=== PATIENT | male | born 1945 | race Caucasian/White ===

== ENCOUNTER 2016-12-30 14:23 | Inpatient (IN) | payer MEDICARE, BC ==
[~2016-12-30] VITALS: Ht 185.4 cm; Wt 90.7 kg
[2017-01-02] MEDS ORDERED: DULC5TAB PO (10:29)
[2017-01-02] MEDS ORDERED: GAS-80CH CHEW (10:29)
[2017-01-02] MEDS ORDERED: SIMV20TA PO (10:29)
[2017-01-02] MEDS ORDERED: CENTTAB PO (10:29)
[2017-01-02] MEDS ORDERED: ASPI1TAB69 PO (10:29)
[2017-01-02] MEDS ORDERED: TRAM50TA PO (10:29)
[2017-01-09] MEDS ORDERED: ePHEDrine/NS 25 MG/5 ML SYR IV ONE (12:00)
[2017-01-09] MEDS ORDERED: PHENYLEPH/NS 1000 MCG/10 ML SYR IV ONE (12:00)
[2017-01-09] MEDS ORDERED: PHENYLEPHRINE HCL 10 MG/ML VIAL IV ONE (12:00)
[2017-01-09] MEDS ORDERED: LACTATED RINGER'S 1000 ML INJ 1,000 ML IV ONE (12:00)
[2017-01-09] MEDS ORDERED: NEOSTIGMINE 3 MG/3 ML SYR IV ONE (12:00)
[2017-01-09] MEDS ORDERED: ONDANSETRON HCL 4 MG/2 ML VIAL IV PUSH ONE (12:00)
[2017-01-09] MEDS ORDERED: PROPOFOL 200 MG/20 ML AMP IV ONE (12:00)
[2017-01-09] MEDS ORDERED: NORMOSOL R INJ 3,000 ML IV ONE (12:00)
[2017-01-09] MEDS ORDERED: MIRA33504 PO (12:13)
[2017-01-09 12:14] VITALS: BP 116/81; PULSE 70; RESP 16; TEMP 97.1; O2SAT 96
[2017-01-09] MEDS ORDERED: METRONIDAZOLE 500 MG/100 ML ISONTONIC SOLN IV SCH (12:15)
[2017-01-09] MEDS ORDERED: ceFAZolin 1,000 MG/NS 100 ML IV SCH ×2 (12:15)
[2017-01-09] MEDS ORDERED: DEXT 5%-NACL 0.9% 1000 ML INJ 1,000 ML IV SCH (12:15)
[2017-01-09] MEDS ORDERED: ALVIMOPAN 12 MG CAPSULE ONE (12:24)
[2017-01-09] MEDS ORDERED: CHLORHEXIDINE GLUCONATE 2 % 1 PACK (2 CLOTHS) TOPICAL PRN (12:30)
[2017-01-09] MEDS ORDERED: METOPROLOL TARTRATE 25 MG TAB PO PRN (12:30)
[2017-01-09] MEDS ORDERED: POVIDONE IODINE 5% (ANTISEPSIS KIT) 4 APPLICATIONS EACH NARE PRN (12:30)
[2017-01-09] MEDS ORDERED: SODIUM CHLORID 0.9% 500 ML IV PRN (12:30)
[2017-01-09] MEDS ORDERED: INSULIN HUMAN REGULAR 1,000 UNITS/10 ML VIAL SQ PRN (12:30)
[2017-01-09] MEDS ORDERED: LACTATED RINGER'S 1000 ML IV PRN (12:30)
[2017-01-09] MEDS ORDERED: GLUCAGON 1 MG/ML VIAL ONE (12:56)
[2017-01-09] MEDS ORDERED: HEPARIN SODIUM - SQ 10,000 UNITS/ML VIAL ONE (12:56)
[2017-01-09] MEDS ORDERED: THROMBIN (TOPICAL) 5,000 UNIT VIAL ONE (12:56)
[2017-01-09] MEDS ORDERED: BUPIVACAINE HCL PF 0.5% 30 ML VIAL ONE (12:56)
[2017-01-09] MEDS ORDERED: GELFOAM SIZE 100 ONE (12:57)
--- NOTE | 2017-01-09 13:26 | PD.HP.UP ---
H&P Update Note The Pre-Admit History and Physical Examination regarding the above named patient was reviewed (including, but not limited to, vital signs, heart, lungs, co-morbid conditions), and upon re-examination it is noted that: the patient's condition has not significantly changed since the last examination. Danielito Ramírez MD Jan 09, 2017 13:26
[2017-01-09 17:27] LABS: BLOOD GAS BASE EXCESS -4.1 mmol/L (-2-2); BLOOD GAS CARBOXYHEMOGLOBIN 1.4 % (0-4); BLOOD GAS HCO3 20 mmol/L (22-26); BLOOD GAS METHEMOGLOBIN 1.5 % (0-2); BLOOD GAS O2 HGB SATURATION 96 % (90-100); BLOOD GAS OXYGEN CONTENT 17.3 Vol % (12.0-20.0); BLOOD GAS PCO2 35 mmHg (38-42); BLOOD GAS PO2 201 mmHg (61-120); BLOOD GAS TOTAL HGB 12.4 G/DL (12.0-16.0); CRITICAL VALUE NO; FIO2 50 %; NUMBER OF ARTERIAL PUNCTURES 1; STAT YES; TEMP CORR TO 98.6; ULNAR PULSE PRESENT
[2017-01-09] MEDS ORDERED: diphenhydrAMINE HCL 50 MG/ML VIAL IV PRN (18:45)
[2017-01-09] MEDS ORDERED: oxyCODONE/ACETAMINOPHEN 5 MG/325 MG TAB PO PRN (18:45)
[2017-01-09] MEDS ORDERED: Post-op Orders (for Pharmacy) MISC XX ONE (18:45)
[2017-01-09] MEDS ORDERED: SODIUM CHLORIDE 0.9% FLUSH 10 ML FLUSH IV FLUSH PRN (18:45)
[2017-01-09] MEDS ORDERED: NALOXONE HCL 0.4 MG/ML AMP IV PRN ×2 (18:45)
[2017-01-09] MEDS ORDERED: HYDROmorphone HCL PF 1 MG/ML VIAL IV PRN ×3 (18:45)
[2017-01-09] MEDS ORDERED: MIDAZOLAM HCL 2 MG/2 ML VIAL ONE (19:05)
[2017-01-09] MEDS ORDERED: *morphine SULFATE 8 MG/ML PERIprocedure ONLY ONE ×3 (19:06→19:57)
[2017-01-09] MEDS ORDERED: fentaNYL CITRATE 250 MCG/5 ML AMP ONE (19:06)
[2017-01-09] MEDS ORDERED: *MEPERIDINE 25 MG INJ VIAL PERIprocedural Use ONLY ONE (19:14)
[2017-01-09] MEDS ORDERED: MORPHINE SULFATE 30 MG/30 ML PCA ONE (19:50)
[2017-01-09] MEDS: PANTOPRAZOLE SODIUM 40 MG VIAL IV SCH (20:00)
[2017-01-09] MEDS ORDERED: DO NOT ADM ANY ANTICOAGULANT DRUGS PRN (20:00)
[2017-01-09] MEDS: SODIUM CHLOR 0.9% 1000 ML INJ 1,000 ML IV SCH (20:15)
[2017-01-09] MEDS: HYDROmorphone HCL PCA 6 MG/30 ML IV SCH (20:26)
[2017-01-09] MEDS: SODIUM CHLORIDE 0.9% FLUSH 10 ML FLUSH IV FLUSH SCH (21:00)
[2017-01-09] MEDS: PCA - TOTAL MG DILAUDID DELIVERED PER SHIFT OTHER SCH (22:00)
[2017-01-09] MEDS: metroNIDAZOLE 500 MG INJ 100 ML IV SCH (22:00)
[2017-01-10] MEDS: SODIUM CHLOR 0.9% 1000 ML INJ 1,000 ML IV SCH ×2 (01:45→07:10)
[2017-01-10] MEDS: HYDROmorphone HCL PCA 6 MG/30 ML IV SCH ×2 (02:19→11:44)
[2017-01-10] MEDS ORDERED: DIMETHICONE/OXYBENZONE/PADMIATE LIP BALM 4.25 GM TOPICAL ONE (04:08)
[2017-01-10] MEDS: metroNIDAZOLE 500 MG INJ 100 ML IV SCH ×3 (06:00→21:32)
[2017-01-10] MEDS: PCA - TOTAL MG DILAUDID DELIVERED PER SHIFT OTHER SCH ×3 (06:00→22:00)
[2017-01-10 07:04] LABS: AUTOMATED NEUTROPHIL # 7.9 TH/MM3 (1.8-7.7); BASOPHIL % 0.1 % (0.0-2.0); HEMATOCRIT 36.7 % (39.0-51.0); HEMO FLAGS DIFF FINAL; LYMPH % 6.9 % (9.0-44.0); LYMPHOCYTE # 0.7 TH/MM3 (1.0-4.8); MEAN CELL VOLUME 92.6 FL (80.0-100.0); MEAN CORPUSCULAR HEMOGLOBIN 30.2 PG (27.0-34.0); MEAN CORPUSCULAR HGB CONC 32.7 % (32.0-36.0); MONO % 9.5 % (0.0-8.0); NEUT % 83.5 % (16.0-70.0); PLATELET COUNT 136 TH/MM3 (150-450); RED BLOOD COUNT 3.96 MIL/MM3 (4.50-5.90); RED CELL DISTRIBUTION WIDTH 13.4 % (11.6-17.2); WHITE BLOOD COUNT 9.4 TH/MM3 (4.0-11.0)
[2017-01-10] MEDS ORDERED: ICU - MAGNESIUM OXIDE 400 MG TAB PO PRN (07:15)
[2017-01-10] MEDS ORDERED: ICU - CALL ORDERING PHYSICIAN PRN (07:15)
[2017-01-10] MEDS ORDERED: ICU - POTASSIUM PHOSPHATE MONOBASIC 500 MG TAB PO PRN (07:15)
[2017-01-10] MEDS ORDERED: ICU - POTASSIUM CHLORIDE/AQUEOUS SOLN 20 MEQ/100 ML IVPB IV PRN (07:15)
[2017-01-10] MEDS ORDERED: ICU - SODIUM PHOSPHATE 30 MMOL/NS 250 ML IV PRN ×2 (07:15)
[2017-01-10] MEDS ORDERED: ICU - MAGNESIUM SULFATE 2 GM/NS 100 ML IV PRN ×2 (07:15)
[2017-01-10] MEDS ORDERED: ICU - MAGNESIUM SULFATE 4 GM/NS 100 ML IV PRN ×2 (07:15)
[2017-01-10] MEDS ORDERED: ICU - POTASSIUM CHLORIDE/AQUEOUS SOLN 40 MEQ/100 ML IVPB IV PRN (07:15)
[2017-01-10] MEDS ORDERED: ICU - POTASSIUM PHOSPHATE 30 MMOL/NS 250 ML IV PRN ×2 (07:15)
[2017-01-10] MEDS ORDERED: ICU - D/C ICU ELECTROLYTE ORDERS PRN (07:15)
[2017-01-10 07:29] LABS: BICARBONATE 25.8 MEQ/L (21.0-32.0); POTASSIUM 4.7 MEQ/L (3.5-5.1)
[2017-01-10 08:04] LABS: CALCIUM-PROTEIN CORRECTED 8.3 MG/DL (8.5-10.1)
[2017-01-10] MEDS: SODIUM CHLORIDE 0.9% FLUSH 10 ML FLUSH IV FLUSH SCH ×2 (09:00→19:58)
[2017-01-10] MEDS: ALVIMOPAN 12 MG CAPSULE PO SCH ×2 (09:00→19:57)
[2017-01-10 15:00] VITALS: BP 119/65; PULSE 101; RESP 21; TEMP 98.8; O2SAT 96
[2017-01-10 16:00] VITALS: BP 124/84; PULSE 101; PULSE 99; RESP 21; TEMP 98.8; O2SAT 96
--- NOTE | 2017-01-10 16:23 | HHI.PR ---
Subjective Remarks C/R Surg POD #1 afebrile, VSS UO good perineal drain mod Objective - Vital Signs Date Time Temp Pulse Resp B/P Pulse Ox O2 Delivery O2 Flow Rate FiO2 01/10/17 16:00 98.8 99 21 124/84 96 01/10/17 15:00 Nasal Cannula 2.00 Result Diagram: 01/10/17 0649 01/10/17 0649 Objective Remarks PE alert Abd - soft, stomas pink, pouched OK A/P Assessment and Plan Imp: stable post-op OOB decr IVF sips tx to floor Danielito Ramírez MD Jan 10, 2017 16:23
[2017-01-10] MEDS ORDERED: KETOROLAC TROMETHAMINE 60 MG/2 ML (IM) VIAL IM PRN (16:30)
[2017-01-10] MEDS: SODIUM CHLOR 0.45% 1000 ML INJ 1,000 ML IV SCH (16:30)
[2017-01-10 18:00] VITALS: PULSE 95
[2017-01-10] MEDS ORDERED: HEPARIN SODIUM - SQ 10,000 UNITS/ML VIAL SQ SCH (18:00)
[2017-01-10] MEDS: PANTOPRAZOLE SODIUM 40 MG VIAL IV SCH (19:58)
[2017-01-10 20:00] VITALS: BP 120/72; PULSE 95; RESP 20; TEMP 98.6; O2SAT 95
[2017-01-10 22:00] VITALS: PULSE 102
[2017-01-11] VITALS (10 sets, daily range): BP systolic 105–124; BP diastolic 60–87; PULSE 83–95; RESP 17–22; TEMP 98.4–98.7; O2SAT 93–99
[2017-01-11] MEDS: SODIUM CHLOR 0.45% 1000 ML INJ 1,000 ML IV SCH ×2 (02:25→17:50)
[2017-01-11 04:59] LABS: BICARBONATE 21.9 MEQ/L (21.0-32.0); POTASSIUM 4.3 MEQ/L (3.5-5.1)
[2017-01-11 05:17] LABS: CALCIUM-PROTEIN CORRECTED 8.6 MG/DL (8.5-10.1)
[2017-01-11] MEDS: metroNIDAZOLE 500 MG INJ 100 ML IV SCH ×3 (05:33→20:26)
[2017-01-11 05:42] LABS: AUTOMATED NEUTROPHIL # 8.4 TH/MM3 (1.8-7.7); BASOPHIL % 0.3 % (0.0-2.0); EOSINOPHIL # 0.1 TH/MM3 (0-0.4); EOSINOPHIL % 0.5 % (0.0-4.0); HEMATOCRIT 31.7 % (39.0-51.0); HEMO FLAGS DIFF FINAL; LYMPH % 10.9 % (9.0-44.0); LYMPHOCYTE # 1.2 TH/MM3 (1.0-4.8); MEAN CELL VOLUME 91.9 FL (80.0-100.0); MEAN CORPUSCULAR HEMOGLOBIN 30.8 PG (27.0-34.0); MEAN CORPUSCULAR HGB CONC 33.5 % (32.0-36.0); NEUT % 79.3 % (16.0-70.0); PLATELET COUNT 105 TH/MM3 (150-450); RED BLOOD COUNT 3.45 MIL/MM3 (4.50-5.90); RED CELL DISTRIBUTION WIDTH 13.9 % (11.6-17.2); WHITE BLOOD COUNT 10.6 TH/MM3 (4.0-11.0)
[2017-01-11] MEDS: PCA - TOTAL MG DILAUDID DELIVERED PER SHIFT OTHER SCH ×3 (06:00→22:00)
[2017-01-11] MEDS: ONDANSETRON HCL 4 MG/2 ML VIAL IV PRN (07:12)
[2017-01-11] MEDS: SODIUM CHLORIDE 0.9% FLUSH 10 ML FLUSH IV FLUSH SCH ×2 (09:00→20:26)
[2017-01-11] MEDS: ALVIMOPAN 12 MG CAPSULE PO SCH ×2 (09:19→20:26)
--- NOTE | 2017-01-11 09:35 | HHI.PR ---
Subjective Remarks C/R Surg POD #2 afebrile, VSS UO good perineal drain mod ileostomy mod Objective - Vital Signs Date Time Temp Pulse Resp B/P Pulse Ox O2 Delivery O2 Flow Rate FiO2 01/11/17 06:00 90 01/11/17 06:00 18 01/11/17 04:00 98.4 108/66 94 01/10/17 19:00 Nasal Cannula 2.00 Result Diagram: 01/11/17 0359 01/11/17 0359 Objective Remarks PE alert Abd - soft, stomas pink, pouched OK wound clean, no tympany A/P Assessment and Plan Imp: OOB decr IVF sips/adv stoma teaching Danielito Ramírez MD Jan 11, 2017 09:35
[2017-01-11] MEDS: HEPARIN SODIUM - SQ 10,000 UNITS/ML VIAL SQ SCH ×2 (11:07→20:26)
[2017-01-11] MEDS: KETOROLAC TROMETHAMINE 30 MG/ML (IVP) VIAL IV PUSH PRN ×4 (11:31→19:45)
--- NOTE | 2017-01-11 15:23 | MP ---
cc: JOE BARBA MD DATE OF SURGERY 01/09/2017 PREOPERATIVE DIAGNOSES 1. Invasive bladder carcinoma. 2. Colonic inertia. 3. History of spina bifida. POSTOPERATIVE DIAGNOSES 1. Invasive bladder carcinoma. 2. Colonic inertia. 3. History of spina bifida. PROCEDURE PERFORMED Total colectomy and ileostomy. COSURGEONS Danielito Ramírez. Joe Barba MD PUBLIC HEALTH TECHNOLOGIST DOCTOR Jorje Chaparro MD SECOND OPERATION 1. Cystectomy and ileal loop. 2. Prostatectomy and bilateral lymph node dissection. COSURGEONS Dr. Barba. Dr. Ramírez PUBLIC HEALTH TECHNOLOGIST Dr. Jorje Chaparro. ANESTHESIA General. 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 Over the last few months he was recently under going preparation for a total colectomy. A cystoscopic exam was carried out at the [facility]. Bladder carcinoma was noted. The operation was stopped. The gentleman was sent back here. We saw him. He underwent a transurethral resection of the bladder tumor and additional biopsies which showed invasive disease locally and carcinoma in situ. Extensive additional consultations were obtained. See the history and physical for the details, but the bottom line is the gentleman was felt to be best served with all of the above-mentioned procedures. Therefore, he received appropriate preoperative antibiotics as well as a bowel prep as prescribed by Dr. Ramírez. He was taken to the operating room, given a general anesthetic and a time-out was taken for identification purposes. Then a midline incision was made from the xiphoid process to the symphysis pubis and the total colectomy was carried out first. Please see the dictation by Dr. Ramírez regarding this. Then the anterior aspect of the bladder was from the pubis, taken down from the iliac vessels on both sides and the posterior lateral and posterior medial pedicles were taken down with the use of Endo-DIDI kwan. The urethra was transected. The bladder was then peeled off of the anterior rectal wall. Again, Dr. Ramírez has dictated the colectomy portion but he elected to leave a bit of a rectal stump. Attention was then turned to the lymph nodes which were dissected from the iliac veins anteriorly, back to the bifurcation and the obturator nerve posteriorly and the obturator fossa inferiorly. These were submitted for permanent analysis. His prostate was also removed and submitted. The distal ureters were submitted for frozen section and Dr. Idalmis Rousseau reported the distal aspects as showing no evidence of carcinoma. So once the colon and the prostate and bladder and the lymph nodes were all out, our attention then turned to the creation of an ileal loop which where we took about 15 cm of terminal ileum to close the butt end and then did an end-to-side anastomosis utilizing 4-0 Monocryl in a whipstitch fashion. We placed ureteral diversion stents in both ureters and we brought the ileal loop out through the right lower quadrant and created a nipple valve. We pexed the ureteral diversion stents to the nipple valve to prevent accidental disruption in the postoperative period. Dr. Ramírez created a terminal ileostomy; see that portion of his dictation for further details. Estimated blood loss in all of this was about 500 cc. We did not feel it was necessary to give him additional blood at this time. The abdominal wound was copiously irrigated and then the small bowel was allowed to retract back to a more normal anatomic position. The abdominal wall fascia was then closed with #1 PDS in a continuous whipstitch, the skin closed over with the skin clips. Appropriate enterostomal therapy ostomy with therapeutic ostomy bags were placed over the ileostomy as well as the Aditya or urinary loop. He tolerated the procedure well and was returned to the recovery room in stable condition. MD BERTHA Contreras/JOHNNY /7:15 PM /3:04 PM
[2017-01-11] MEDS: PANTOPRAZOLE SODIUM 40 MG VIAL IV SCH (20:25)
--- NOTE | 2017-01-11 21:35 | HHI.PR ---
Subjective Patient symptoms today POD#2 Radical cystectomy No issues overnight. Pain well controlled. No N/V, no fevers. Objective Vital Signs Vital Signs Date Time Temp Pulse Resp B/P Pulse Ox O2 Delivery O2 Flow Rate FiO2 01/11/17 16:00 98.7 83 22 108/60 97 01/11/17 16:00 88 01/11/17 12:40 20 01/11/17 12:00 98.6 86 17 116/64 97 01/11/17 08:00 98.5 83 22 105/65 99 01/11/17 06:00 90 01/11/17 06:00 18 01/11/17 04:00 98.4 93 22 108/66 94 01/11/17 04:00 93 01/11/17 02:00 89 01/11/17 00:00 98.4 89 20 109/60 93 01/11/17 00:00 89 01/10/17 22:00 102 01/10/17 22:00 16 Intake & Output 01/11/17 01/11/17 07:00 19:00 Intake Total 2734 ml 362 ml Output Total 955 ml 355 ml Balance 1779 ml 7 ml Intake Oral 90 ml IV Total 2644 ml 362 ml Output Urine Total 600 ml Stool Total 5 ml 30 ml Drainage Total 350 ml 325 ml Result Diagram: 01/11/17 0359 01/11/17 0359 Objective Remarks NAD, AAOx3 Reps NL Ab Soft, Nondistended; Midline incision healing well with kwna in place Bilateral stomas in place, right ileal conduit with dark yellow urine noted; Left ileostomy with stool output noted Pelvic drain in place, No edema Medications and IVs Current Medications Medications (Trade) Dose Ordered Sig/Deo Route Start Time Stop Time Status Last Admin (NS Flush) 2 ml UNSCH PRN IV FLUSH 01/09/17 18:45 (NS Flush) 2 ml BID IV FLUSH 01/09/17 21:00 01/11/17 20:26 (Zofran Inj) 4 mg Q6H PRN IV 01/09/17 18:45 01/11/17 07:12 (Protonix Inj) 40 mg Q24H IV 01/09/17 20:00 01/11/17 20:25 (Benadryl Inj) 25 mg Q6H PRN IV 01/09/17 18:45 (Percocet 5-325 Mg) 1 tab Q6H PRN PO 01/09/17 18:45 (Percocet 10-325 Mg) 2 tab Q6H PRN PO 01/09/17 18:45 (Dilaudid Pf Inj) 1 mg Q3H PRN IV 01/09/17 18:45 (Dilaudid Pf Inj) 1 mg Q3H PRN IV 01/09/17 18:45 (Narcan Inj) 0.4 mg UNSCH PRN IV 01/09/17 18:45 (Narcan Inj) 0.4 mg UNSCH PRN IV 01/09/17 18:45 (Dilaudid MILK AND CREAM GRADER Inj) 6 mg UNSCH IV 01/09/17 18:45 01/10/17 11:44 MILK AND CREAM GRADER Dosage Infused (Pha) 1 1 Q8HR OTHER 01/09/17 22:00 01/11/17 06:00 (Flagyl 500 Mg Inj) 100 ml @ 100 mls/hr Q8H IV 01/09/17 22:00 01/11/17 20:26 (Entereg) 12 mg Q12HR PO 01/10/17 09:00 01/16/17 21:01 01/11/17 20:26 Miscellaneous Information D/C ICU ELECTROLYTE ORDERS... UNSCH PRN .XX 01/10/17 07:15 Miscellaneous Information ICU - CALL ORDERING PHYSIC... UNSCH PRN .XX 01/10/17 07:15 Potassium Chloride 100 ml @ 25 mls/hr UNSCH PRN IV 01/10/17 07:15 Potassium Chloride 100 ml @ 50 mls/hr UNSCH PRN IV 01/10/17 07:15 Magnesium Sulfate 4 gm/Sodium Chloride 108 ml @ 54 mls/hr UNSCH PRN IV 01/10/17 07:15 Magnesium Sulfate 2 gm/Sodium Chloride 104 ml @ 52 mls/hr UNSCH PRN IV 01/10/17 07:15 (Sodium Phosphate Inj/NS 250 ml Inj) 260 ml @ 43.333 mls/ hr UNSCH PRN IV 01/10/17 07:15 Potassium Phosphate 2000 mg 2,000 mg UNSCH PRN PO 01/10/17 07:15 Potassium Phosphate 30 mmol/ Sodium Chloride 260 ml @ 43.333 mls/ hr UNSCH PRN IV 01/10/17 07:15 (1/2 NS 1000 ml Inj) 1,000 ml @ 75 mls/hr [id number] IV 01/10/17 16:30 01/11/17 17:50 (Toradol Inj) 15 mg Q6H PRN IV PUSH 01/11/17 09:45 01/11/17 17:42 (Heparin Inj) 5,000 units Q12HR SQ 01/11/17 09:45 01/11/17 20:26 Assessment and Plan Assessment and Plan POD#2 Radical cystectomy, ileal conduit, pelvic lymph node dissection -Pain well controlled -Diet per Colorectal -Good UOP -Maintain suresh pelvic drain in place -Ambulate, SCDs, IS -Heparin prophy SQ Jorje Chaparro MD Jan 11, 2017 21:35
[2017-01-12] VITALS (9 sets, daily range): BP systolic 108–132; BP diastolic 65–89; PULSE 69–91; RESP 17–25; TEMP 98.4–99.3; O2SAT 93–96
[2017-01-12] MEDS: KETOROLAC TROMETHAMINE 30 MG/ML (IVP) VIAL IV PUSH PRN ×3 (00:08→18:37)
[2017-01-12] MEDS: HYDROmorphone HCL PCA 6 MG/30 ML IV SCH (01:41)
[2017-01-12] MEDS: SODIUM CHLOR 0.45% 1000 ML INJ 1,000 ML IV SCH ×2 (02:46→18:38)
[2017-01-12] MEDS: metroNIDAZOLE 500 MG INJ 100 ML IV SCH ×3 (05:44→21:29)
[2017-01-12] MEDS: PCA - TOTAL MG DILAUDID DELIVERED PER SHIFT OTHER SCH (06:00)
--- NOTE | 2017-01-12 07:09 | HHI.PR ---
Subjective Remarks C/R Surg POD #3 afebrile, VSS UO good perineal drain mod ileostomy functioning Objective - Vital Signs Date Time Temp Pulse Resp B/P Pulse Ox O2 Delivery O2 Flow Rate FiO2 01/12/17 06:00 74 01/12/17 06:00 17 01/12/17 04:00 98.5 108/65 93 01/11/17 19:00 Nasal Cannula 2.00 Result Diagram: 01/11/17 0359 01/11/17 0359 Objective Remarks PE alert Abd - soft, stomas pink, pouched OK wound clean, no tympany, rectal drain serous A/P Assessment and Plan Imp: OOB decr IVF sips/adv stoma teaching PT tx to floor Danielito Ramírez MD Jan 12, 2017 07:09
[2017-01-12] MEDS: ALVIMOPAN 12 MG CAPSULE PO SCH ×2 (08:49→21:29)
[2017-01-12] MEDS: HEPARIN SODIUM - SQ 10,000 UNITS/ML VIAL SQ SCH ×2 (08:50→21:29)
--- NOTE | 2017-01-12 09:26 | MP ---
cc: GUILLERMINA BARBA MD, ANDREW H. M.D. DATE OF SURGERY 01/09/2017 PREOPERATIVE DIAGNOSES Colonic inertia. History of spina bifida. Recently diagnosed invasive bladder cancer. PROCEDURE Exploratory laparotomy with total abdominal proctocolectomy and end-ileostomy. POSTOPERATIVE DIAGNOSES Colonic inertia. History of spina bifida. Recently diagnosed invasive bladder cancer. COSURGEONS Dr. Ritter Dr. Barba PSYCHIATRY RESIDENT Dr. Chaparro PROCEDURE The patient was placed in the supine position. After adequate general anesthesia, his legs were placed in the [place] stirrups and supported appropriately. The abdomen and perineum were then prepped with Betadine solution and draped in the usual sterile fashion. With both Drs. Barba and Shankar's assistance, the abdomen was opened through a midline incision. Exploration revealed the colon to be very thick-walled and somewhat atypical in location with the right colon completely mobilized. The transverse colon was quite adherent and almost twisted into the omentum with quite dense adhesions. The left colon appeared to be more normal as was the rectosigmoid heading down in to the pelvis. The small bowel was run from the ligament of Treitz down to the ileocecal valve and, except for some adhesions, was felt to be pretty unremarkable. The liver and gallbladder were pretty normal. The stomach and duodenum were normal. The great vessels were of normal caliber and only minimally calcified. With some traction on the cecum, the appendix was freed from its abdominal wall attachments and returned back into the abdomen. The right colon was then fully mobilized by dividing along the white line of Toldt. The right ureter was identified and preserved for later reconstruction. Dissection then proceeded up taking down usual hepatic flexure, may have been mobilized previously. A rather lengthy dissection was necessary to free up the omentum off the transverse colon and enter the lesser sac which appeared to be obliterated. After full mobilization, the sigmoid colon was mobilized medially, again dividing along the white line of Toldt, preserving the left ureter. Dissection then proceeded up the left gutter taking down attachments to the splenic flexure, entering the lesser sac and taking the gastrocolic omentum off the transverse colon. After full mobilization, the bowel was divided in the terminal ileum using the DIDI stapling device. The major vascular pedicles were taken between Brianna's obtaining hemostasis with Vicryl ties. Dissection then proceeded taking the transverse colon and left colic vessels, the superior hemorrhoidal vessels and proceeding down into the pelvis. The right retroperitoneal space was opened and the right ureter identified and preserved. Dissection then proceeded, mobilizing the bowel off the presacral fascia down toward the pelvic floor. Anteriorly the cul-de-sac was opened and at a point in the proximal rectum the mesorectum was divided using electrocautery and the bowel finally divided using a TA-60 stapler and a Twin clamp, removing the colon. Please refer to Dr. Barba's dictation for the remainder of the cystectomy, prostatectomy and ileal loop creation. After Dr. Barba had finished the urologic part of the procedure, the ileal loop was in place. The distal end of the ileum was mobilized by excising a segment of bowel, dividing it along the mesenteric border using electrocautery. After additional mobilization, a circular stab wound was created in the left mid-abdomen and the ileum brought up through this stab wound as a loop of creating an avascular plane in the mesentery. The abdomen was then irrigated copiously with normal saline. Adequate hemostasis appeared in the pelvis and all other operative sites. Dr. Barba had a Johnson catheter inserted in through the urethra and left in the pelvis for drainage. The omentum was then passed over the upper abdomen but did not completely fill the pelvic cavity. The midline incision was closed anatomically using a running #1 PDS suture. The previous appendicocecostomy site left ear with also closed in two layers using running #1 PDS sutures to reapproximate the respective fascial layers. The subcu tissue was irrigated copiously and the skin closed with a row of interrupted kwan. The wound area was washed with normal saline and dried. The ileostomy was then matured by creating an enterotomy and maturing the proximal limb with interrupted 3-0 chromic catgut sutures around the circumference in the usual Deb fashion. At completion the stoma did appear to be viable and was patent through the fascial level. Sterile ileostomy appliance fitted over the new stoma. The patient tolerated the procedure quite well and was brought to the recovery room in stable condition. Sponge and needle counts were correct at the end of the procedure. MD MADDY Brown/JOHNNY /10:47 PM /9:17 AM
[2017-01-12] MEDS: SODIUM CHLORIDE 0.9% FLUSH 10 ML FLUSH IV FLUSH SCH (21:00)
[2017-01-12] MEDS: PANTOPRAZOLE SODIUM 40 MG VIAL IV SCH (21:29)
[2017-01-12] MEDS: oxyCODONE/ACETAMINOPHEN 10 MG/325 MG TAB PO PRN (23:48)
[2017-01-13] VITALS: BP 116/68; PULSE 86; RESP 20; TEMP 98.9; O2SAT 96
[2017-01-13] MEDS: metroNIDAZOLE 500 MG INJ 100 ML IV SCH ×2 (06:43→13:27)
[2017-01-13 08:00] VITALS: BP 121/71; PULSE 75; RESP 16; TEMP 97.9; O2SAT 95
[2017-01-13] MEDS: ALVIMOPAN 12 MG CAPSULE PO SCH ×2 (09:18→21:11)
[2017-01-13] MEDS: HEPARIN SODIUM - SQ 10,000 UNITS/ML VIAL SQ SCH ×2 (09:18→21:11)
[2017-01-13] MEDS: oxyCODONE/ACETAMINOPHEN 10 MG/325 MG TAB PO PRN ×3 (09:18→17:41)
[2017-01-13] MEDS: SODIUM CHLORIDE 0.9% FLUSH 10 ML FLUSH IV FLUSH SCH ×2 (09:19→21:00)
[2017-01-13 12:00] VITALS: BP 119/75; PULSE 81; RESP 16; TEMP 96.8; O2SAT 96
[2017-01-13] MEDS: SODIUM CHLOR 0.45% 1000 ML INJ 1,000 ML IV SCH (13:28)
[2017-01-13 16:00] VITALS: BP 120/57; PULSE 78; RESP 15; TEMP 97.8; O2SAT 95
--- NOTE | 2017-01-13 17:13 | HHI.FF ---
Face to Face Verification Diagnosis: (1) Colonic inertia Physical Therapy Order: Evaluate and Treat, Improve ambulation, Strength and gait training Home Health Nursing Order: Signs/symptoms of disease process Medication education-adverse effect Wound care and dressing changes I have seen patient Jasson Taylor on 01/13/17. My clinical findings support the need for the requested home health care services because: Ltd mobility - disease progression Deconditioned w/ increased weakness High risk of falls I certify that my clinical findings support that this patient is homebound because: Post-op weakness Unsteady gait/balance Danielito Ramírez MD Jan 13, 2017 17:13
[2017-01-13 20:00] VITALS: BP 130/78; PULSE 82; RESP 20; TEMP 97.8; O2SAT 96
[2017-01-13] MEDS: KETOROLAC TROMETHAMINE 30 MG/ML (IVP) VIAL IV PUSH PRN (21:08)
[2017-01-13] MEDS: PANTOPRAZOLE SODIUM 40 MG VIAL IV SCH (21:11)
--- NOTE | 2017-01-13 23:46 | HHI.PR ---
Subjective Remarks C/R Surg POD #4 afebrile, VSS UO good perineal drain mod ileostomy functioning, concha PO Objective - Vital Signs Date Time Temp Pulse Resp B/P Pulse Ox O2 Delivery O2 Flow Rate FiO2 01/13/17 20:00 97.8 82 20 130/78 96 01/11/17 19:00 Nasal Cannula 2.00 Result Diagram: 01/11/17 0359 01/11/17 0359 Objective Remarks PE alert Abd - soft, stomas pink, pouched OK wound clean, no tympany, rectal drain serous A/P Assessment and Plan Imp: OOB decr IVF sips/adv diet stoma teaching PT dc plans Danielito Ramírez MD Jan 13, 2017 23:46
[2017-01-14] VITALS: BP 124/74; PULSE 75; RESP 18; TEMP 98.6; O2SAT 96
[2017-01-14] MEDS: SODIUM CHLOR 0.45% 1000 ML INJ 1,000 ML IV SCH ×2 (03:39→20:33)
[2017-01-14 04:00] VITALS: BP 137/81; PULSE 94; RESP 18; TEMP 97.8; O2SAT 96
[2017-01-14] MEDS: KETOROLAC TROMETHAMINE 30 MG/ML (IVP) VIAL IV PUSH PRN ×3 (04:30→20:46)
[2017-01-14] MEDS: ONDANSETRON HCL 4 MG/2 ML VIAL IV PRN (05:09)
[2017-01-14] MEDS: SODIUM CHLORIDE 0.9% FLUSH 10 ML FLUSH IV FLUSH SCH ×2 (07:51→20:33)
[2017-01-14] MEDS: ALVIMOPAN 12 MG CAPSULE PO SCH ×2 (07:52→20:34)
[2017-01-14] MEDS: HEPARIN SODIUM - SQ 10,000 UNITS/ML VIAL SQ SCH ×2 (07:52→20:34)
[2017-01-14 08:00] VITALS: BP 140/82; PULSE 88; RESP 18; TEMP 97.7; O2SAT 95
[2017-01-14 12:00] VITALS: BP 132/73; PULSE 83; RESP 16; TEMP 96; O2SAT 96
[2017-01-14 16:00] VITALS: BP 125/75; PULSE 84; RESP 16; TEMP 98.4; O2SAT 97
[2017-01-14] MEDS: oxyCODONE/ACETAMINOPHEN 10 MG/325 MG TAB PO PRN ×2 (17:05→23:12)
[2017-01-14 20:00] VITALS: BP 112/70; PULSE 79; RESP 17; TEMP 97.6; O2SAT 96
[2017-01-14] MEDS: PANTOPRAZOLE SODIUM 40 MG VIAL IV SCH (20:33)
[2017-01-15] VITALS: BP 106/69; PULSE 71; RESP 17; TEMP 97; O2SAT 96
[2017-01-15] MEDS: ALVIMOPAN 12 MG CAPSULE PO SCH (08:11)
[2017-01-15] MEDS: oxyCODONE/ACETAMINOPHEN 10 MG/325 MG TAB PO PRN ×2 (08:11→14:35)
[2017-01-15] MEDS: HEPARIN SODIUM - SQ 10,000 UNITS/ML VIAL SQ SCH (08:11)
[2017-01-15] MEDS: SODIUM CHLORIDE 0.9% FLUSH 10 ML FLUSH IV FLUSH SCH (08:12)
[2017-01-15 12:00] VITALS: BP 107/67; PULSE 85; RESP 16; TEMP 97.6; O2SAT 98
--- NOTE | 2017-03-01 07:53 | MD ---
cc: CHARLI SAINZ M.D., JAVIER M.D. DINEEN, MARTIN K. MD ADMISSION DATE: 01/09/2017 DISCHARGE DATE: 01/15/2017 ADMITTING DIAGNOSIS 1. Severe colonic inertia. 2. Invasive bladder cancer. 3. History of spina bifida. DISCHARGE DIAGNOSIS 1. Colon mucosal hyperplasia. No invasive cancer. 2. 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 3. Prostate adenocarcinoma T3,N0,M0. 4. History of spina bifida. PROCEDURE 01/09/2017 1. Exploratory laparotomy with total abdominal proctocolectomy and end ileostomy. 2. Total cystectomy and ileal loop prostatectomy and bilateral lymph node dissection. HISTORY OF PRESENT ILLNESS Mr. Taylor is a 71-year-old male born with spina bifida. He has been living for a long time with severe colonic inertia, having appendicocecostomy done for antegrade irrigations of the colon. Despite this method of bowel movements, he has had more constipation problems and increased difficulty with irrigations. As part of his work-up for possible total colectomy he was found to have severe dysplasia and areas of invasive bladder cancer. The patient was evaluated at the [facility] and then by Dr. Linton and due to his poor urinary function and invasive cancer he has elected to undergo total abdominal colectomy and en bloc total cystectomy and prostatectomy. The patient was admitted at this time for definitive surgical resection. Please see admitting history and physical for more complete past medical and surgical history. PERTINENT PHYSICAL A very pleasant older male in no acute distress. Abdomen was not distended. Very minimal tympany. No rebound or guarding. No masses. Appendiceal stoma is pink and flush with the skin. Anal inspection revealed benign canal. Digital exam revealed only fair tone with no masses or tenderness. HOSPITAL COURSE After admission, the patient was taken to the operating room on the 01/09/2017 at which point the undersigned performed a total abdominal proctocolectomy and end ileostomy. He was found to have a very redundant colon with extensive adhesions from his previous surgeries. Dr. Linton performed a cystectomy and ileal loop with prostatectomy and bilateral lymph node dissection. The patient tolerated the combined surgery quite well. Postoperatively he was initially stabilized in the intensive care unit. Patient Education helped in the pouching of his two stomas. His ileostomy began to function rather promptly and his diet was advanced slowly. He did have significant drainage from his perineal drain considering the extent of dissection which was not unexpected. He also required some physical therapy for postoperative weakness and atelectasis. His IV fluids were tapered as his oral intake improved. Both stomas remained pink and pouching was fairly simple. The patient had his perineal drain discontinued by Dr. Linton. He was eating well and able to be considered for discharge home on 01/15/2017. Final pathology did reveal colon consistent with colonic inertia was no malignancy. The bladder showed carcinoma in situ but no invasion. All lymph nodes were negative. Final stage was T1,N0. The prostate surprisingly showed an adenocarcinoma with primary staging T3,N0. DISCHARGE INSTRUCTIONS The patient was discharged eating a regular diet. He was encouraged to increase his fluid intake to offset the ileostomy losses. Home Health was arranged for assistance in the care of his two stomas. The patient will be seen in one weeks' time for routine follow-up. If any problems prior to the scheduled office visit he was encouraged to call for more urgent attention. MD MADDY Brown/YOMI /8:13 PM /7:40 AM
== END 2017-01-15 15:41 | disposition home health service (06) | DRG 655 ==
LOC: HSDI 01-09 11:18 → HPAC 01-09 21:00 → N03B 01-10 14:34 → N07B 01-12 15:40
PROVIDERS: ADMIT Colon & Rectal Surgery; ATTEND Colon & Rectal Surgery
PROC: 0VT00ZZ Resection of Prostate, Open Approach (ICD-10-PCS; 2017-01-09)
PROC: 0TB60ZZ Excision of Right Ureter, Open Approach (ICD-10-PCS; 2017-01-09)
PROC: 0TB70ZZ Excision of Left Ureter, Open Approach (ICD-10-PCS; 2017-01-09)
PROC: 0T180ZB Bypass Bilateral Ureters to Bladder, Open Approach (ICD-10-PCS; 2017-01-09)
PROC: 0DTE0ZZ Resection of Large Intestine, Open Approach (ICD-10-PCS; 2017-01-09)
PROC: 0D1B0Z4 Bypass Ileum to Cutaneous, Open Approach (ICD-10-PCS; 2017-01-09)
PROC: 0TTB0ZZ Resection of Bladder, Open Approach (ICD-10-PCS; principal; 2017-01-09 13:45)
PROC: 07BC0ZX Excision of Pelvis Lymphatic, Open Approach, Diagnostic (ICD-10-PCS; 2017-01-09 13:45)
DX: C67.1 Malignant neoplasm of dome of bladder (principal); C61 Malignant neoplasm of prostate; I10 Essential (primary) hypertension; D09.0 Carcinoma in situ of bladder; I25.10 Atherosclerotic heart disease of native coronary artery without angina pectoris; Q05.9 Spina bifida, unspecified; K59.8 Other specified functional intestinal disorders; Z95.5 Presence of coronary angioplasty implant and graft
CPT/HCPCS: 36600; 80048; 82805; 84155; 85025; 86850; 86900; 86901; 88305; 88307; 88309; 88331; 94150; C2617; C9113; J0690; J1170; J1610; J1644; J1885; J2175; J2250; J2270; J2370; J2405; J2710; J3010; J7030; J7120

== ENCOUNTER → 2017-01-02 | Outpatient (CLI) | payer MEDICARE, BC ==
[~2017-01-02] MED LIST: ASPI1TAB69 PO; CENTTAB PO; CEPH-460 PO; DULC5TAB PO; GAS-80CH CHEW; MIRA33504 PO; SIMV20TA PO; TRAM50TA PO
[2017-01-02 11:00] LABS: AUTOMATED NEUTROPHIL # 4.2 TH/MM3 (1.8-7.7); BASOPHIL # 0.1 TH/MM3 (0-0.2); BASOPHIL % 0.8 % (0.0-2.0); EOSINOPHIL # 0.3 TH/MM3 (0-0.4); EOSINOPHIL % 3.9 % (0.0-4.0); HEMATOCRIT 48.5 % (39.0-51.0); HEMO FLAGS DIFF FINAL; LYMPH % 23.5 % (9.0-44.0); LYMPHOCYTE # 1.6 TH/MM3 (1.0-4.8); MEAN CELL VOLUME 92.2 FL (80.0-100.0); MEAN CORPUSCULAR HEMOGLOBIN 30.8 PG (27.0-34.0); MEAN CORPUSCULAR HGB CONC 33.5 % (32.0-36.0); MONO % 8.5 % (0.0-8.0); NEUT % 63.3 % (16.0-70.0); PLATELET COUNT 162 TH/MM3 (150-450); RED BLOOD COUNT 5.27 MIL/MM3 (4.50-5.90); RED CELL DISTRIBUTION WIDTH 13.9 % (11.6-17.2); WHITE BLOOD COUNT 6.7 TH/MM3 (4.0-11.0)
[2017-01-02 11:09] LABS: PROTHROMBIN TIME - PATIENT 11.4 SEC (9.8-11.6)
[2017-01-02 11:18] LABS: BACTERIA, URINE RARE /hpf; BLOOD, URINE MOD (NEG); COMMENT (UR) CULT NOT INDICATED; CULTURE IF INDICATED CULT NOT INDICATED; GLUCOSE,URINE NEG (NEG); KETONE, URINE NEG (NEG); MUCUS URINE FEW /lpf (OCC); NITRITE,URINE NEG (NEG); PH, URINE 5.5 (5.0-8.5); SQUAMOUS EPITHELIAL CELL URINE 1 /hpf (0-5); URINE COLOR YELLOW (YELLW/STRAW)
[2017-01-02 11:20] LABS: ALKALINE PHOSPHATASE 72 U/L (45-117); ALT (GPT) 36 U/L (12-78); ANION GAP 7 MEQ/L (5-15); AST (GOT) 21 U/L (15-37); BICARBONATE 28.7 MEQ/L (21.0-32.0); BLOOD UREA NITROGEN 14 MG/DL (7-18); CHLORIDE 105 MEQ/L (98-107); GLOMERULAR FILTRATION RATE 91 ML/MIN (>89); GLUCOSE,FASTING 110 MG/DL (74-99); POTASSIUM 4.9 MEQ/L (3.5-5.1); SODIUM (NA) 141 MEQ/L (136-145); TOTAL BILIRUBIN ADULT 0.8 MG/DL (0.2-1.0)
--- NOTE | 2017-01-02 11:54 | RADRPT ---
EXAM DATE/TIME: 01/02/2017 12:27 [place] COMPARISON: No previous studies available for comparison. INDICATIONS : Evaluate for pneumonia, pneumothorax and communicable diseases. Pre-op bowel surgery. MEDICAL HISTORY : Chronic obstructive pulmonary disease. SURGICAL HISTORY : None. ENCOUNTER: Initial ACUITY: 1 day PAIN SCORE: 0/10 LOCATION: chest FINDINGS: PA and lateral views of the chest demonstrate the lungs to be symmetrically aerated without evidence of mass, infiltrate or effusion. Moderate hyperinflation is evident. The cardiomediastinal contours are unremarkable. Osseous structures are intact with minimal scoliosis. CONCLUSION: Moderate hyperinflation with minimal scoliosis otherwise negative. David Burt MD FACR on January 02, 2017 at 11:52 Board Certified Radiologist. This report was verified electronically.
--- NOTE | 2017-01-03 21:49 | EKG ---
Date Performed: 01/02/2017 Time Performed: 11:11:16 PTAGE: 71 years EKG: Sinus rhythm WITH MARKED SINUS ARRHYTHMIA Since previous tracing, no significant change noted BORDERLINE ECG PREVIOUS TRACING : 08/25/2004 15.53 DOCTOR: Kellie Mendez Interpretating Date/Time 01/03/2017 21:47:50
== END ==
LOC: CPRE 10:01
PROVIDERS: ATTEND Colon & Rectal Surgery
DX: Z01.810 Encounter for preprocedural cardiovascular examination (principal); Z01.811 Encounter for preprocedural respiratory examination; Z01.812 Encounter for preprocedural laboratory examination; K59.01 Slow transit constipation; Z79.01 Long term (current) use of anticoagulants; R94.31 Abnormal electrocardiogram [ECG] [EKG]
CPT/HCPCS: 36415; 71020; 80053; 80076; 81001; 82565; 84520; 85025; 85610; 85652; 85730; 86140; 93005

== ENCOUNTER 2017-01-22 10:10 | Emergency (ER) | payer MEDICARE, BC ==
[~2017-01-22] VITALS: Ht 185.4 cm; Wt 90.0 kg
[~2017-01-22 10:10] MED LIST changes: -CEPH-460 PO; -DULC5TAB PO; -MIRA33504 PO
[2017-01-22 10:12] VITALS: BP 143/78; PULSE 83; RESP 17; TEMP 98; O2SAT 100
[2017-01-22] MEDS ORDERED: SODIUM CHLORIDE 0.9% FLUSH 10 ML FLUSH IV FLUSH PRN (10:30)
[2017-01-22] MEDS ORDERED: MORPHINE SULFATE 4 MG/ML INJ IV PUSH ONE (10:30)
--- NOTE | 2017-01-22 10:39 | PD ---
HPI Chief Complaint: Pain: Acute or Chronic Time Seen by Provider: 10:21 Travel History International Travel<30 days: No Contact w/Intl Traveler<30days: No Traveled to known affect area: No History of Present Illness HPI Patient is a 71-year-old male with history of spina bifida and neurogenic bladder, recently diagnosed with an invasive bladder cancer who on 01/09/17 had an exploratory laparoscopy with total abdominal proctocolectomy and end ileostomy. His operative reports don't describe any urological surgery that based on patient's history he had a bladder resection and neobladder with urostomy and his exam is consistent with this. Patient states that over the course the last 3 days he has been having increasing pain in the abdomen, primarily left-sided, the side of his ileostomy. Patient has also had some nocturnal chills 3 days but no documented fever. He notes some pain within the testicles right greater than left. Has a remote history of epididymitis. PFSH Past Medical History Cancer: Yes (BLADDER CA) Cardiovascular Problems: Yes (heart murmur) High Cholesterol: Yes COPD: Yes Diabetes: No Endocrine: No Genitourinary: Yes (neurogenic bladder) Hepatitis: Yes (HEP B) Hiatal Hernia: No Immune Disorder: No Musculoskeletal: Yes (Spina bifida) Neurologic: No Psychiatric: No Reproductive: No Respiratory: Yes Thyroid Disease: No Past Surgical History Abdominal Surgery: Yes (Pedro anti robles colonic anema) AICD: No Body Medical Devices: MALON ANASTASIIA, STENTS Cardiac Surgery: Yes (2 stents placed - 5 years ago) Ear Surgery: No Endocrine Surgery: No Eye Surgery: Yes (cataract surgery of eyes) Genitourinary Surgery: No Gynecologic Surgery: No Joint Replacement: No Oral Surgery: No Pacemaker: No Thoracic Surgery: No Social History Tobacco Use: No Substance Use: No Allergies-Medications (Allergen,Severity, Reaction): Coded Allergies: No Known Allergies (Verified , 01/09/17) Reported Meds & Prescriptions Reported Meds & Active Scripts Active Keflex (Cephalexin) 500 Mg Cap 500 Mg PO Q8H 7 Days Reported Centrum Silver (Multiple Vitamins W/ Minerals) 1 Tab 1 Tab PO DAILY Gas-X (Simethicone) 80 Mg Chew 80 Mg CHEW QID PRN Aspirin 81 Mg Tabdr 81 Mg PO DAILY Tramadol (Tramadol HCl) 50 Mg Tab 50 Mg PO Q4H PRN Simvastatin 20 Mg Tab 20 Mg PO DAILY Review of Systems Except as stated in HPI: all other systems reviewed are Neg Physical Exam Narrative GENERAL: Well-appearing male in no acute distress SKIN: Focused skin assessment warm/dry. HEAD: Normocephalic. EYES: No scleral icterus. No injection or drainage. ENT: No nasal bleeding or discharge. Mucous membranes pink and moist. NECK: Supple CARDIOVASCULAR: Regular rate and rhythm. No murmur appreciated. RESPIRATORY: No accessory muscle use. Clear to auscultation. Breath sounds equal bilaterally. GASTROINTESTINAL: Abdomen soft, mild diffuse tenderness to palpation greatest left side without rebound or guarding, nondistended. Surgical sites are healing well. His ostomy is are pink and well perfused. He is draining clear to yellow urine from his urostomy and brownish greenish stool from his ileostomy. GENITOURINARY: Normal external male genitalia. Patient has tenderness to palpation of the right testis and epididymis and less so the left MUSCULOSKELETAL: No obvious deformities. No edema. NEUROLOGICAL: Awake and alert. Motor grossly within normal limits. Normal speech. PSYCHIATRIC: Appropriate mood and affect; insight and judgment normal. Data Data Last Documented VS Vital Signs Date Time Temp Pulse Resp B/P Pulse Ox O2 Delivery O2 Flow Rate FiO2 01/22/17 12:53 16 01/22/17 11:40 68 126/74 98 Room Air 01/22/17 10:12 98.0 Orders Complete Blood Count With Diff (01/22/17 10:28) Comprehensive Metabolic Panel (01/22/17 10:28) Lipase (01/22/17 10:28) Urinalysis - C+S If Indicated (01/22/17 10:28) Ct Abd/Pel W Iv Contrast(Rout) (01/22/17 10:28) Iv Access Insert/Monitor (01/22/17 10:28) Ecg Monitoring (01/22/17 10:28) Oximetry (01/22/17 10:28) Morphine Inj (Morphine Inj) (01/22/17 10:30) Sodium Chloride 0.9% Flush (Ns Flush) (01/22/17 10:30) Us Testicles W Doppler (01/22/17 ) Oral Contrast - Adult (01/22/17 11:05) Urine Culture (01/22/17 10:50) Piperacil-Tazo 4.5 Gm Premix (Zosyn 4.5 (01/22/17 12:15) Diatrizoate Liq ( Gastrovalente Liq) (01/22/17 12:43) Iohexol 350 Inj (Omnipaque 350 Inj) (01/22/17 13:43) Labs Laboratory Tests Test 01/22/17 10:50 White Blood Count 7.3 TH/MM3 Red Blood Count 3.57 MIL/MM3 Hemoglobin 10.7 GM/DL Hematocrit 32.1 % Mean Corpuscular Volume 90.0 FL Mean Corpuscular Hemoglobin 29.9 PG Mean Corpuscular Hemoglobin 33.3 % Concent Red Cell Distribution Width 13.9 % Platelet Count 349 TH/MM3 Mean Platelet Volume 6.2 FL Neutrophils (%) (Auto) 71.6 % Lymphocytes (%) (Auto) 10.4 % Monocytes (%) (Auto) 11.9 % Eosinophils (%) (Auto) 5.3 % Basophils (%) (Auto) 0.8 % Neutrophils # (Auto) 5.2 TH/MM3 Lymphocytes # (Auto) 0.8 TH/MM3 Monocytes # (Auto) 0.9 TH/MM3 Eosinophils # (Auto) 0.4 TH/MM3 Basophils # (Auto) 0.1 TH/MM3 CBC Comment DIFF FINAL Differential Comment Urine Color YELLOW Urine Turbidity HAZY Urine pH 6.5 Urine Specific [place] 1.009 Urine Protein 30 mg/dL Urine Glucose (UA) NEG mg/dL Urine Ketones NEG mg/dL Urine Occult Blood MOD Urine Nitrite POS Urine Bilirubin NEG Urine Urobilinogen LESS THAN 2.0 MG/DL Urine Leukocyte Esterase LARGE Urine RBC 26 /hpf Urine WBC 119 /hpf Urine Squamous Epithelial <1 /hpf Cells Urine Renal Epithelial Cells <1 /hpf Urine Amorphous Sediment RARE Urine Bacteria OCC /hpf Urine Mucus FEW /lpf Microscopic Urinalysis Comment CULTURE INDICATED Sodium Level 139 MEQ/L Potassium Level 4.8 MEQ/L Chloride Level 106 MEQ/L Carbon Dioxide Level 24.5 MEQ/L Anion Gap 9 MEQ/L Blood Urea Nitrogen 10 MG/DL Creatinine 0.73 MG/DL Estimat Glomerular Filtration 107 ML/MIN Rate Random Glucose 93 MG/DL Calcium Level 8.6 MG/DL Total Bilirubin 0.5 MG/DL Aspartate Amino Transf 76 U/L (AST/SGOT) Alanine Aminotransferase 80 U/L (ALT/SGPT) Alkaline Phosphatase 111 U/L Total Protein 7.0 GM/DL Albumin 2.6 GM/DL Lipase 121 U/L [facility] Medical Decision Making Medical Screen Exam Complete: Yes Emergency Medical Condition: Yes Medical Record Reviewed: Yes Differential Diagnosis 71-year-old male status post 01/09/17 flap with total abdominal proctocolectomy, end ileostomy, urostomy with neobladder and ureteral stents here with 3 days of increasing abdominal pain left sided, nocturnal chills, and right sided testicular pain. Differential includes pelvic or abdominal abscess, postsurgical pain, UTI, epididymitis, and less likely obstruction. Narrative Course Patient placed on monitor, IV established and blood obtained. Given 4 mg morphine. CBC, CMP, lipase, urinalysis showed hemoglobin 10.7. Positive UTI with nitrites, leukocyte esterase, white cells, red cells and bacteria. Patient was treated with doses Zosyn. CT abdomen and pelvis showed postsurgical changes with slight fluid in the pelvis and around the spleen and bilateral pelvocaliectasis. Testicular ultrasound showed small hydrocele on the right. Extratesticular cyst abutting the testicles bilaterally benign in appearance. Patient was reassured and will be discharged home with antibiotics. Diagnosis Primary Impression: Urinary tract infection Qualified Code: N10 - Acute pyelonephritis Additional Impression: Abdominal pain Qualified Code: R10.84 - Generalized abdominal pain Referrals: Joe Linton MD, Andrew H MD 1 week Additional Instructions: Keflex as prescribed for urinary tract infection. Med/Other Pt SpecificInfo: Prescription(s) given Scripts Cephalexin (Keflex)500 Mg [id number] Mg PO Q8H 7 Days Ref 0 Prov:Maryellen Arevalo MD 01/22/17 Disposition: 01 DISCHARGE HOME Condition: Stable Maryellen Arevalo MD Jan 22, 2017 10:39
[2017-01-22 11:03] LABS: AUTOMATED NEUTROPHIL # 5.2 TH/MM3 (1.8-7.7); BASOPHIL # 0.1 TH/MM3 (0-0.2); BASOPHIL % 0.8 % (0.0-2.0); EOSINOPHIL # 0.4 TH/MM3 (0-0.4); EOSINOPHIL % 5.3 % (0.0-4.0); HEMATOCRIT 32.1 % (39.0-51.0); HEMO FLAGS DIFF FINAL; LYMPH % 10.4 % (9.0-44.0); LYMPHOCYTE # 0.8 TH/MM3 (1.0-4.8); MEAN CORPUSCULAR HEMOGLOBIN 29.9 PG (27.0-34.0); MEAN CORPUSCULAR HGB CONC 33.3 % (32.0-36.0); MONO % 11.9 % (0.0-8.0); NEUT % 71.6 % (16.0-70.0); PLATELET COUNT 349 TH/MM3 (150-450); RED BLOOD COUNT 3.57 MIL/MM3 (4.50-5.90); RED CELL DISTRIBUTION WIDTH 13.9 % (11.6-17.2); WHITE BLOOD COUNT 7.3 TH/MM3 (4.0-11.0)
[2017-01-22 11:22] LABS: ALKALINE PHOSPHATASE 111 U/L (45-117); TOTAL BILIRUBIN ADULT 0.5 MG/DL (0.2-1.0)
[2017-01-22 11:40] VITALS: BP 126/74; PULSE 68; RESP 16; O2SAT 98
[2017-01-22 11:44] LABS: ALT (GPT) 80 U/L (12-78); ANION GAP 9 MEQ/L (5-15); AST (GOT) 76 U/L (15-37); BICARBONATE 24.5 MEQ/L (21.0-32.0); BLOOD UREA NITROGEN 10 MG/DL (7-18); CHLORIDE 106 MEQ/L (98-107); GLOMERULAR FILTRATION RATE 107 ML/MIN (>89); SODIUM (NA) 139 MEQ/L (136-145)
[2017-01-22 11:46] LABS: BACTERIA, URINE OCC /hpf; BLOOD, URINE MOD (NEG); GLUCOSE,URINE NEG (NEG); KETONE, URINE NEG (NEG); MUCUS URINE FEW /lpf (OCC); PH, URINE 6.5 (5.0-8.5); RENAL EPITHELIAL CELLS <1 /hpf; SQUAMOUS EPITHELIAL CELL URINE <1 /hpf (0-5); URINE COLOR YELLOW (YELLW/STRAW)
[2017-01-22 11:47] LABS: POTASSIUM 4.8 MEQ/L (3.5-5.1)
[2017-01-22 11:51] LABS: COMMENT (UR) CULTURE INDICATED; CULTURE IF INDICATED CULTURE INDICATED; NITRITE,URINE POS (NEG)
--- NOTE | 2017-01-22 12:13 | RADRPT ---
EXAM DATE/TIME: 01/22/2017 11:18 [facility] COMPARISON: No previous studies available for comparison. INDICATIONS : Testicle pain. Two weeks post iliostomy and urostomy. MEDICAL HISTORY : Hepatitis B. Hypercholesterolemia. Heart murmur. COPD. SURGICAL HISTORY : Cardiac stents. ENCOUNTER: Initial ACUITY: 2 weeks PAIN SCORE: 5/10 LOCATION: Bilateral testicle. MEASUREMENTS: RIGHT TESTICLE: 4.1 x 2.9 x 1.7cm LEFT TESTICLE: 3.4 x 3.4 x 1.9cm FINDINGS: RIGHT TESTICLE: Homogeneous echotexture without intra or extratesticular mass. Extratesticular cyst is present measur ing 5 mm towards the lower pole. Blood flow is symmetric and within normal limits. Small hydrocele wi thout varicocele. Epididymis is within normal limits. LEFT TESTICLE: Homogeneous echotexture without intra or extratesticular mass. Patient has testicular cyst is presen t towards the upper pole measuring almost 5-6 mm in size Blood flow is symmetric and within normal li mits. No hydrocele or varicocele. Epididymis is within normal limits. CONCLUSION: Small hydrocele on the right and there are extratesticular cyst abutting the testicles bilaterally be nign in appearance. Steph Corral MD on January 22, 2017 at 12:08 Board Certified Radiologist. This report was verified electronically.
[2017-01-22] MEDS ORDERED: PIPERACIL-TAZO 4.5 GM PREMIX 100 ML IV ONE (12:15)
[2017-01-22] MEDS ORDERED: DIATRIZOATE MEGLUM/DIATRIZOATE SOD 9 ML CUP ONE (12:43)
[2017-01-22 12:53] VITALS: RESP 16
[2017-01-22] MEDS ORDERED: IOHEXOL 350 MG/ML 10 ML VIAL (for RAD DIAG) IV ONE (13:43)
--- NOTE | 2017-01-22 13:55 | RADRPT ---
EXAM DATE/TIME: 01/22/2017 13:29 [facility] COMPARISON: No previous studies available for comparison. INDICATIONS : Testicular pain radiating to lower abdomen and back. IV CONTRAST: 94 cc Omnipaque 350 (iohexol) IV ORAL CONTRAST: No oral contrast ingested. RADIATION DOSE: 9.96 CTDIvol (mGy) MEDICAL HISTORY : Carcinoma, bladder. Hepatitis B. Cardiovascular disease SURGICAL HISTORY : Prostatectomy. Ileostomy, urostomy ENCOUNTER: Initial ACUITY: 3 days PAIN SCALE: 7/10 LOCATION: Bilateral pelvis TECHNIQUE: Volumetric scanning of the abdomen and pelvis was performed. Using automated exposure control and ad justment of the mA and/or kV according to patient size, radiation dose was kept as low as reasonably achievable to obtain optimal diagnostic quality images. FINDINGS: CT Abdomen: The liver, spleen, pancreas, adrenals are unremarkable. There is no evidence for any appr eciable pathological adenopathy, or bowel obstruction. Slightly prominent loops of jejunum are ident ified probably a mild case of ileus. There is pelvic caliectasis in both kidneys without any mass. Bi lateral double-J stent are present exiting into ileal conduit. The bladder has been resected surgical ly with slight fluid in the pelvis in addition to perisplenic space. Subcutaneous gas is present in t he anterior abdominal wall mostly be postsurgical. CT pelvis: There is no evidence for mass, abscess formation, or any significant adenopathy within the pelvis. CONCLUSION: Postsurgical changes with slight fluid within the pelvis and around the spleen and bi lateral pelvocaliectasis. Steph Corral MD on January 22, 2017 at 13:48 Board Certified Radiologist. This report was verified electronically.
[2017-01-22] MEDS ORDERED: CEPH-460 PO (14:04)
[2017-01-22 14:33] VITALS: BP 120/77; PULSE 88; RESP 16; TEMP 99.2; O2SAT 97
== END 2017-01-22 15:29 | disposition home or self-care (01) ==
LOC: NEPE 10:10
DX: N39.0 Urinary tract infection, site not specified (principal); B96.1 Klebsiella pneumoniae [K. pneumoniae] as the cause of diseases classified elsewhere; R10.84 Generalized abdominal pain; N50.811 Right testicular pain; E78.00 Pure hypercholesterolemia, unspecified; J44.9 Chronic obstructive pulmonary disease, unspecified
CPT/HCPCS: 74177; 76870; 80053; 81001; 83690; 85025; 87077; 87086; 87186; 93975; 96365; 96375; 99284; J2270; J2543; Q9963; Q9967